=== PATIENT | female | born 1980 | race Caucasian/White ===

== ENCOUNTER → 2024-04-28 | Outpatient (CLI) | payer BC ==
[~2024-04-28] MED LIST: BIRTH CONTROL; IBUP800 PO; OXYACE5T PO; Prenatabs Rx T1 EACH; THYR60 PO
[2024-04-28 15:43] LABS: Free Thyroxine 0.85 ng/dL (0.70-1.60); T3 Uptake 32 % (30-39); Triiodothyronine, Free 4.74 pg/mL (2.18-3.98)
== END ==
LOC: LAB 11:41 → LAB SHORT 11:41
PROVIDERS: Obstetrics & Gynecology
DX: E28.2 Polycystic ovarian syndrome (principal)
CPT/HCPCS: 83036; 84439; 84445; 84479; 84481